=== PATIENT | male | born 1965 ===

== ENCOUNTER 2018-08-12 02:07 | Day surgery (SDC) | payer BC ==
[~2018-08-12] VITALS: Ht 182.9 cm; Wt 96.2 kg
[~2018-08-12 02:07] MED LIST: PANT40TA65 PO; SIMV-49 PO; VALA500T63 PO
[2018-08-12] MEDS ORDERED: PROPOFOL EMUL(*) 10MG/ML 20 ML 20 ML ONE ×2 (09:43→12:02)
[2018-08-12 11:07] VITALS: BP 135/97
[2018-08-12] MEDS ORDERED: NORMOSOL R SOLN(*) 1000 ML BAG 1,000 ML IV PRN (11:35)
[2018-08-12] MEDS ORDERED: LIDOCAINE/SOD BICARB 8.4% SYR ID ONE (11:35)
[2018-08-12 12:33] VITALS: BP 108/68
[2018-08-12 12:34] VITALS: BP 112/71
[2018-08-12 13:00] VITALS: BP 122/78
[2018-08-12 13:15] VITALS: BP 116/86
[2018-08-12 13:16] VITALS: BP 116/90
== END 2018-08-12 13:25 | disposition home or self-care (01) ==
LOC: OR 02:07
PROVIDERS: ATTEND Internal Medicine Gastroenterology
DX: Z12.11 Encounter for screening for malignant neoplasm of colon (principal); K29.70 Gastritis, unspecified, without bleeding; K20.9 Esophagitis, unspecified; K21.9 Gastro-esophageal reflux disease without esophagitis; E78.5 Hyperlipidemia, unspecified
CPT/HCPCS: 00813; 43239; 45378; 88305; 88313; 88344; J2704